=== PATIENT | male | born 1990 | race Caucasian/White ===

== ENCOUNTER 2023-02-23 12:57 | Emergency (ER) | payer OTHER ==
[2023-02-23] MEDS ORDERED: Lidocaine 1% with EPINEPHrine 1:100,000 20 ML MDV INFILT ONE (13:22)
[2023-02-23] MEDS ORDERED: Diphtheria,Pertussis(Acell),Tetanus Vaccine 0.5 ML Syringe IM ONE (13:22)
[2023-02-23] MEDS ORDERED: Bacitracin Oint 1 GM U/D Packet TOP ONE (13:55)
== END 2023-02-23 14:15 | disposition home or self-care (01) ==
LOC: DL.ED 12:57
DX: S51.811A Laceration without foreign body of right forearm, initial encounter (principal); Z23 Encounter for immunization; W25.XXXA Contact with sharp glass, initial encounter; Y92.009 Unspecified place in unspecified non-institutional (private) residence as the place of occurrence of the external cause
CPT/HCPCS: 12001; 90471; 90715; 99282; 99282-25; A9270-GY; J3490